=== PATIENT | male | born 1960 | race Caucasian/White ===

== ENCOUNTER 2016-05-03 17:29 | Emergency (ER) | payer BC ==
[~2016-05-03] VITALS: Ht 177.8 cm; Wt 82.0 kg
[2016-05-03] MEDS ORDERED: ALBUTEROL/IPRATROPIUM 2.5MG/0.5MG, 3 ML ONE (18:43)
[2016-05-03] MEDS ORDERED: ALBUTEROL/IPRATROPIUM 2.5MG/0.5MG, 3 ML NPPB ONE (19:00)
[2016-05-03 19:21] VITALS: BP 112/87
== END 2016-05-03 19:23 | disposition home or self-care (01) ==
LOC: ED 18:00
DX: J02.9 Acute pharyngitis, unspecified (principal); J45.909 Unspecified asthma, uncomplicated
CPT/HCPCS: 71020; 93005; 94640; J7620